=== PATIENT | male | born 1980 | race Caucasian/White ===

== ENCOUNTER 2019-07-13 01:43 | Day surgery (SDC) | payer BC, SELFPAY ==
[2019-07-08 14:01] VITALS: BMI 35.3
[2019-07-13 08:39] VITALS: BP 126/77; PULSE 87; RESP 18; TEMP 36.3; O2SAT 96
[2019-07-13] MEDS: LACTATED RINGERS 1,000 ML 150 ML IV CONT (08:53)
--- NOTE | 2019-07-13 09:00 | WPDANESEPPF ---
Anes - Initial Pre Proc Eval Procedure: Operation Date: 07/13/19 10:00 Proposed Procedures p Esophagogastroduodenoscopy - Davin Glasgow MD Date/Time: 07/13/19 09:00 Surgeon: Davin Glasgow MD Pre Op Diagnosis: reflux, dysphagia, epigastric pain Patient Data Age: 39 Gender: M Height: 5 ft 11 in Weight: 126 kg Last Vital Signs Temp 97.3 F L 07/13/19 08:39 Pulse 87 07/13/19 08:39 Resp 18 07/13/19 08:39 BP 126/77 07/13/19 08:39 Pulse Ox 96 07/13/19 08:39 Allergies Allergy/AdvReac Type Severity Reaction Status Date / Time No Known Allergies Allergy Unknown Verified 07/13/19 08:37 Home Medications Medication Instructions Recorded Confirmed Type esomeprazole magnesium 20 mg 20 mg PO DAILY 06/06/19 History capsule,delayed release Patient hx anesthesia problems: none Family hx anesthesia problems: none [facility] Past Medical History Medical History (Updated 07/13/19 @ 08:44 by Lalo Seals MD) GERD (gastroesophageal reflux disease) Family History Family History (Updated 01/19/14 @ 07:13 by DOCTOR UNKNOWN) Father Family history of malignant neoplasm of brain Social History Social History Smoking status: Never smoker Alcohol intake: current Anes - Eval Final PreProcedure Day of Procedure 07/13/19 09:00 Patient weight: obese Heart: regular rate and rhythm Lungs: clear to auscultation Airway: Mallampati scale class III Neurological: alert and oriented Last oral intake: >/= 8 hours ASA classification: II Emergent: no Anesthetic plan: proceed Anesthesia type and monitoring: general GIVS and standard monitoring Informed Consent: The patient's anesthetic plan and its attendant risks and benefits were discussed with the patient/family/POA. Questions were solicited and answers provided to the satisfaction of the patient/family/POA.
--- NOTE | 2019-07-13 09:08 | P.HP_ITS ---
History of Present Illness History of Present Illness Consent: Risks, benefits, and alternatives have been discussed and questions answered. Patient agrees to proceed with procedure. Chief complaint: reflux, dysphagia, epigastric pain Narrative: Jj Carias is a 39 year old male with chronic acid reflux. He has taken medication for years which relieves some of the symptoms. He has particularly prone to having problems with heartburn if he eats late in the day. He has not noticed dysphagia. He also has excessive burping a cannot relate it to anything in particular that he has eaten. He does avoid carbonation and drinking through straws. [facility] Past Medical History Medical History GERD (gastroesophageal reflux disease) Family History Family History (Updated 01/19/14 @ 07:13 by DOCTOR UNKNOWN) Father Family history of malignant neoplasm of brain Social History Social History Smoking status: Never smoker Alcohol intake: current Meds Home Medications and Allergies Home Medications Medication Instructions Recorded Confirmed Type esomeprazole magnesium 20 mg 20 mg PO DAILY 06/06/19 History capsule,delayed release Allergies Allergy/AdvReac Type Severity Reaction Status Date / Time No Known Allergies Allergy Unknown Verified 07/13/19 08:37 Vital Signs Vital Signs - 24 hr 07/13/19 08:39 Temperature 36.3 C L Pulse Rate 87 Respiratory Rate 18 Blood Pressure 126/77 Pulse Oximetry 96 Exam Const: General: alert Orientation/consciousness: patient oriented x3 Resp: Auscultation: clear to auscultation bilaterally Cardio: Rhythm: regular rhythm GI: GI Palp: Yes Soft to palpation and No Tenderness to palpation present (GI) Neuro: General: patient oriented x3 Assessment and Plan Assessment and plan (1) GERD (gastroesophageal reflux disease): Code(s): K21.9 - Gastro-esophageal reflux disease without esophagitis Status: Acute Assessment and Plan: EGD with possible biopsy or dilatation or cautery.
[2019-07-13 09:20] VITALS: BP 122/78; PULSE 83; RESP 13; O2SAT 94
[2019-07-13 09:30] VITALS: BP 114/71; PULSE 77; RESP 13; O2SAT 95
[2019-07-13 09:40] VITALS: BP 125/88; PULSE 73; RESP 19; O2SAT 97
== END 2019-07-13 09:56 | disposition home or self-care (01) ==
PROVIDERS: PCP Family Medicine; Visit Provider Internal Medicine Gastroenterology
PROC: 0DJ08ZZ Inspection of Upper Intestinal Tract, Via Natural or Artificial Opening Endoscopic (ICD-10-PCS; CPT 43235; principal; 2019-07-13 10:00)
DX: K21.0 Gastro-esophageal reflux disease with esophagitis (principal); K31.7 Polyp of stomach and duodenum; E66.9 Obesity, unspecified; Z68.38 Body mass index [BMI] 38.0-38.9, adult
CPT/HCPCS: 43239; 88305; J2704; J7120

== ENCOUNTER 2021-01-26 19:29 | Observation (INO) | payer BC, SELFPAY ==
[2021-01-26] VITALS (23 sets, daily range): BP systolic 85–143; BP diastolic 44–84; PULSE 76–112; RESP 14–34; TEMP 36.8; O2SAT 95–97
--- NOTE | ~2021-01-26 | XR_ITS ---
EXAMINATION: XR chest 1V portable DATE: 01/26/2021 20:51 INDICATION: Cough and shortness of breath. Generalized chest pain. COVID-19 positive. TECHNIQUE: A single frontal view of the chest was obtained. COMPARISON: Chest 2 views 07/08/2017, CT abdomen and pelvis 07/08/2017 FINDINGS: There is worsened elevation of right hemidiaphragm. There are airspace opacities in right m id and lower lung zones. No pleural effusion or pneumothorax. The heart size is normal. IMPRESSION: 1. Airspace opacities in right mid and lower lung zones with worsened elevation of right hemidiaphrag m, consistent with atelectasis versus pneumonia. Reviewed, dictated and finalized at location A. IMPRESSION: 1. Airspace opacities in right mid and lower lung zones with worsened elevation of right hemidiaphragm, consistent with atelectasis versus pneumonia.
--- NOTE | ~2021-01-26 | CT_ITS ---
EXAMINATION: CTA chest PE protocol DATE: 01/26/2021 21:16 INDICATION: Shortness of breath. COVID-19 pneumonia. TECHNIQUE: Computed tomography angiography (CTA) of the chest was performed with 100 mL Omnipaque-350 intravenous contrast timed to evaluate the pulmonary arteries. Coronal maximum intensity projection 3D-reconstructions were created by the technologist. Automated exposure control and iterative reconst ruction technique were employed. The dose-length product was 929.69 mGy-cm. COMPARISON: CT abdomen and pelvis 07/08/2017 FINDINGS: There are patchy airspace and groundglass opacities in all lobes. No pleural effusion. Ther e is chronic elevation of right hemidiaphragm. The heart size is normal. No pericardial effusion. The re is no pulmonary embolus. There is mild right hilar lymphadenopathy. There is a small sliding hiata l hernia. There is mild thoracic spondylosis. IMPRESSION: 1. No pulmonary embolus. 2. Diffuse lung disease, consistent with COVID-19 pneumonia. 3. Mild right hilar lymphadenopathy, likely reactive. 4. Small sliding hiatal hernia. Reviewed, dictated and finalized at location A.
--- NOTE | 2021-01-26 19:39 | ECG_ITS ---
Measurements Intervals [place] Rate: 108 P: -13 DE: 136 QRS: 57 QRSD: 104 T: -16 QT: 322 QTc: 433 Interpretive Statements SINUS TACHYCARDIA POSSIBLE LEFT ATRIAL ENLARGEMENT INCOMPLETE RIGHT BUNDLE BRANCH BLOCK CONSIDER INFERIOR INFARCT, AGE INDETERMINATE BORDERLINE T WAVE ABNORMALITY- ANTEROLATERAL LEADS ABNORMAL ECG Electronically Signed On 01-27-2021 7:01:12 CDT by Leighton Lambert D.O.
[2021-01-26 20:20] LABS: Basophils Percent Auto 0.2 % (0.2-1.2); Hematocrit 46.8 % (42.0-52.0); Hemoglobin 15.9 g/dL (14.0-18.0); Immature Granulocyte Absolute 0.04 K/mm3 (0.00-0.031); Immature Granulocyte Percent A 0.5 % (0-0.5); Lymphocytes Absolute Auto 1.58 K/mm3 (0.9-3.2); Lymphocytes Percent Auto 18.8 % (18.3-44.2); Mean Corpuscular Hemoglobin 28.8 pg (26-34); Mean Corpuscular Volume 84.8 fl (80-100); Mean Platelet Volume 9.6 fl (7.4-10.4); Monocytes Absolute Auto 0.7 K/mm3 (0.1-0.6); Monocytes Percent Auto 8.4 % (2.6-8.5); Neutrophils Absolute Auto 6.1 K/mm3 (1.3-6.7); Neutrophils Percent Auto 72.1 % (45.5-73.1); Platelet Count Result 279 k/mm3 (150-375); Red Blood Count 5.52 M/mm3 (4.6-6.20); Red Cell Distribution Width 13.2 % (11.5-14.5); White Blood Count 8.4 K/mm3 (4.5-10.0)
[2021-01-26 20:30] LABS: Anion Gap 8 mmol/L (8-16); Blood Urea Nitrogen 14 mg/dL (9-20); Calcium 8.8 mg/dL (8.4-10.2); Carbon Dioxide 26 mmol/L (22-30); Chloride 100 mmol/L (98-107); Estimated Glomerular Filt Rate > 60; Glucose 111 mg/dL (65-110); Potassium 3.4 mmol/L (3.4-5.0); Sodium 134 mmol/L (137-145)
--- NOTE | 2021-01-26 20:31 | ED.SOB ---
HPI - SOB/Dyspnea General Chief Complaint: Shortness of Breath/Dyspnea Stated Complaint: covid positive, sob Time Seen by Provider: 01/26/21 19:56 Source: RN notes reviewed History of Present Illness HPI Narrative: Patient presents emergency department from home for COVID-19. Patient states he tested positive for COVID-19 approximately 3 days ago symptoms starting 5 days prior to that he states that today he was having some midsternal chest pain worse with coughing or deep inspiration as well as shortness of breath he also noted episodes of near syncope with trying to use the restroom he states he has been running low-grade fevers last took ibuprofen at 6 PM he notes nausea but denies any vomiting denies any abdominal pain patient states he did not receive the Covid vaccination Related Data Home Medications Medication Instructions Recorded Confirmed esomeprazole magnesium 20 mg 20 mg PO DAILY 06/06/19 capsule,delayed release Allergies Allergy/AdvReac Type Severity Reaction Status Date / Time No Known Allergies Allergy Unknown Verified 07/13/19 08:37 Review of Systems Review of Systems: Gen.: Reports fever Eyes: Denies eye pain or visual change ENT: Denies congestion Respiratory: See HPI CV: Reports chest pain GI: Denies abdominal pain emesis or diarrhea. Reports nausea Musculoskeletal: Denies back pain or muscle pain Neuro: Denies numbness, tingling, weakness or focal weakness Skin: Denies rash Except as documented, all other systems reviewed and negative [facility] Past Medical History Medical History (Updated 01/26/21 @ 23:10 by Ray Corneoj DO) GERD (gastroesophageal reflux disease) Family History Family History (Updated 01/19/14 @ 07:13 by DOCTOR UNKNOWN) Father Family history of malignant neoplasm of brain Social History Social History Smoking status: Never smoker Alcohol intake: current Exam Narrative: APPEARANCE: No acute distress, nontoxic, resting in bed EYES: EOMI HEENT: Normocephalic, atraumatic, OMM RESPIRATORY: No respiratory distress Clear to auscultation bilaterally with no rhonchi wheezing or rales. CARDIOVASCULAR: Regular rate and rhythm without murmurs rubs or gallops. ABDOMINAL: Soft, nontender, nondistended, no rebound or guarding MUSCULOSKELETAl: Moves all extremities. No clubbing, cyanosis or edema. NEURO: Awake and alert. Following commands, speech normal, no focal deficits SKIN:: Warm, dry. No rashes lesions or abrasions PSYCHIATRIC: Normal affect/mood, Course Course Emergency Course: Patient given 2 L of fluid in the ED repeat orthostatics still showed mild orthostasis patient unstable on his feet will admit at this time Discussed with Dr. Huynh presentation work-up agrees with admission at this time Discussed with patient and family results of workup and diagnosis. Discussed need for admission. Patient and family understand and agree to current treatment plan Vital Signs Vital signs: Vital Signs Temperature 98.2 F 01/26/21 19:40 Pulse Rate 108 H 01/26/21 19:40 Respiratory Rate 18 01/26/21 19:40 Blood Pressure 143/83 H 01/26/21 19:40 Pulse Oximetry 97 01/26/21 19:40 Temperature 98.2 F 01/26/21 19:40 Pulse Rate 102 H 01/26/21 22:31 Respiratory Rate 23 H 01/26/21 22:31 Blood Pressure 102/60 01/26/21 22:30 Pulse Oximetry 95 01/26/21 21:17 MDM - SOB/Dyspnea Lab Data Result diagrams: 01/26/21 19:53 01/26/21 19:53 Labs: Lab Results 01/26/21 01/26/21 01/26/21 Range/Units 19:53 19:53 19:53 WBC 8.4 (4.5-10.0) K/mm3 RBC 5.52 (4.6-6.20) M/mm3 Hgb 15.9 (14.0-18.0) g/dL Hct 46.8 (42.0-52.0) % MCV 84.8 (80-100) fl MCH 28.8 (26-34) pg MCHC 34.0 (32-36) g/dl RDW 13.2 (11.5-14.5) % Plt Count 279 (150-375) k/mm3 MPV 9.6 (7.4-10.4) fl Immature Gran % (Auto) 0.5 (0-0.5) % Neut % (Auto)
[2021-01-26 20:41] LABS: Alanine Aminotransferase 53 U/L (4-50); Albumin Level 4.4 g/dL (3.5-5.1); Alkaline Phosphatase 93 U/L (38-126); Aspartate Amino Transferase 53 U/L (17-59); Bilirubin,Total 0.6 mg/dL (0.2-1.3); CRP 1.8 mg/dL (<1.0); Lactate Dehydrogenase 529 U/L (313-618)
[2021-01-26 21:08] LABS: Troponin I < 0.012 ng/mL (0.000-0.034)
[2021-01-26] MEDS: SODIUM CHLORIDE 0.9% IV 1,000 ML 999 ML IV CONT ×2 (21:13→21:14)
[2021-01-26] MEDS: FAMOTIDINE 20 MG/2 ML VIAL IV PUSH (21:13)
[2021-01-26] MEDS: ONDANSETRON INJ 4 MG/2 ML VIAL IV PUSH (21:13)
[2021-01-26] MEDS: ALBUTEROL SULFATE (*SP) AEROSOL 1 PUFF 2 PUFF INHALATION (21:25)
--- NOTE | 2021-01-26 23:00 | PM.IMHP ---
H&P: HPI History of Present Illness Date/Time: 01/26/21 23:00 Chief Complaint: Weakness and shortness of breath Narrative: This is a 40-year-old male with GERD who presented to the emergency department earlier today via private vehicle from home with complaints of weakness and shortness of breath. He tested positive for COVID-19 3 days ago on but he has had symptoms since last weekend to include body aches, generalized malaise, cough, mild hyposmia and dysgeusia, nausea, and subjective fever. His appetite has been extremely poor and he has not had much to even eat or drink for the last several days. More recently he has been lightheaded and dizzy with position changes with several near syncopal episode when getting up to use the restroom. Indeed he was found to be orthostatic in the emergency department (105/84 --> 85/44) and despite receiving 2 L of normal saline he continues to be orthostatic and he is being admitted in the setting. Chest CTA showed no evidence of pulmonary embolism but did demonstrate diffuse lung disease consistent with COVID-19. Patient reports that his fianc?e and their children are also positive for COVID-19. He is unvaccinated. Review of Systems Review of Systems: 12 systems were reviewed with pertinent positives and negatives as per HPI. He has had subjective fever and frequent sweats. Mild headache. Diffuse body aches. No significant sinus congestion, rhinorrhea, otalgia, or odynophagia. Reports chest congestion with cough productive of clear sputum. He has not had exertional chest pain or pleuritic pain. No orthopnea or PND. He has felt a bit winded with activity. No vomiting or diarrhea. Reports decrease in urine output with dark urine. Except as documented, all other systems were reviewed and are negative. [facility] Past Medical History Medical History (Updated 01/26/21 @ 23:24 by Christina Galeano PA-C) Gastroesophageal reflux disease Kidney stone Surgical History Surgical History (Updated 01/26/21 @ 23:21 by Christina Galeano PA-C) History of cystoscopy Family History Family History Father Family history of malignant neoplasm of brain Social History Social History (Updated 01/26/21 @ 23:22 by Christina Galeano PA-C) Social History: The patient lives with his elodia and their children in [place]. Non-smoker. Consumes alcohol socially and in moderation. No illicit substance use. Surrogate decision-maker: Patricia Carias, mother. CODE STATUS: Full code. Meds Home Medications and Allergies Home Medications Medication Instructions Recorded Confirmed Type esomeprazole magnesium 20 mg 20 mg PO DAILY 06/06/19 History capsule,delayed release albuterol sulfate 90 mcg/actuation 2 puff INHALATION Q4H PRN #8.5 g 11/20/20 Rx aerosol inhaler benzonatate 100 mg capsule 100 mg PO TID PRN #30 cap 11/20/20 Rx Allergies Allergy/AdvReac Type Severity Reaction Status Date / Time No Known Allergies Allergy Unknown Verified 07/13/19 08:37 Vital Signs Vital Signs - 24 hr 01/26/21 19:40 01/26/21 20:30 01/26/21 20:33 Temperature 98.2 F Pulse Rate 108 H 88 93 Respiratory Rate 18 34 H 25 H Blood Pressure 143/83 H 107/69 Pulse Oximetry 97 01/26/21 20:38 01/26/21 20:41 01/26/21 20:42 Temperature Pulse Rate 80 81 Respiratory Rate 18 Blood Pressure 85/44 L 85/44 L Pulse Oximetry 01/26/21 20:45 01/26/21 20:46 01/26/21 21:00 Temperature Pulse Rate 76 81 82 Respiratory Rate 19 20 28 H Blood Pressure 92/73 L Pulse Oximetry 01/26/21 21:01 01/26/21 21:17 01/26/21 21:23 Temperature Pulse Rate 82 100 88 Respiratory Rate 28 H 19 25 H Blood Pressure 97/69 L 104/58 L Pulse Oximetry 95 01/26/21 21:26 01/26/21 21:30 01/26/21 21:45 Temperature Pulse Rate 88 92 89 Respiratory Rate 14 24 H 22 H Blood Pressure Pulse Oximetry 01/26/21 22:00
--- NOTE | 2021-01-26 23:30 | PC.NURSE ---
Assumed care of pt at this time, report taken from Curly VOGEL. Pt alert and upright on stretcher, denies any complaints at this time. Pt updated on POC.
[2021-01-27] VITALS (10 sets, daily range): BP systolic 106–144; BP diastolic 54–70; PULSE 76–109; RESP 17–20; TEMP 36.2–38.4; O2SAT 93–98; BMI 37.5
--- NOTE | 2021-01-27 00:46 | PC.NURSE ---
This patient, Jj Carias, was admitted to [address] [place] [address] Room 300-01. Patient/family oriented to hospital policies and general routines including ID bracelet, bed and alarms, visiting hours, pain management, procedures, bathroom and other care routines, personal items, smoking policy, room service/diet, and visiting hours. Information on how to activate the Rapid Response Team has been discussed. Patient/Family are encouraged to report perceived risks to care and to ask questions if they do not understand what they are told or what they should do.
[2021-01-27] MEDS: SODIUM CHLORIDE 0.9% IV 1,000 ML 100 ML IV CONT (00:58)
[2021-01-27 01:09] LABS: Troponin I < 0.012 ng/mL (0.000-0.034)
[2021-01-27 02:55] LABS: Basophils Percent Auto 0.3 % (0.2-1.2); Hematocrit 39.8 % (42.0-52.0); Hemoglobin 13.2 g/dL (14.0-18.0); Immature Granulocyte Absolute 0.03 K/mm3 (0.00-0.031); Immature Granulocyte Percent A 0.4 % (0-0.5); Lymphocytes Absolute Auto 1.05 K/mm3 (0.9-3.2); Lymphocytes Percent Auto 14.9 % (18.3-44.2); Mean Corpuscular HGB Conc 33.2 g/dl (32-36); Mean Corpuscular Hemoglobin 28.8 pg (26-34); Mean Corpuscular Volume 86.7 fl (80-100); Mean Platelet Volume 9.6 fl (7.4-10.4); Monocytes Absolute Auto 0.4 K/mm3 (0.1-0.6); Neutrophils Absolute Auto 5.5 K/mm3 (1.3-6.7); Neutrophils Percent Auto 78.4 % (45.5-73.1); Platelet Count Result 225 k/mm3 (150-375); Red Blood Count 4.59 M/mm3 (4.6-6.20); Red Cell Distribution Width 13.5 % (11.5-14.5); White Blood Count 7.1 K/mm3 (4.5-10.0)
[2021-01-27 03:25] LABS: Troponin I < 0.012 ng/mL (0.000-0.034)
[2021-01-27 03:31] LABS: Alanine Aminotransferase 42 U/L (4-50); Albumin Level 3.5 g/dL (3.5-5.1); Alkaline Phosphatase 65 U/L (38-126); Anion Gap 6 mmol/L (8-16); Aspartate Amino Transferase 38 U/L (17-59); Bilirubin,Total 0.4 mg/dL (0.2-1.3); Blood Urea Nitrogen 13 mg/dL (9-20); CRP 1.9 mg/dL (<1.0); Calcium 7.7 mg/dL (8.4-10.2); Carbon Dioxide 25 mmol/L (22-30); Chloride 104 mmol/L (98-107); Estimated CRCL calculation 145 ml/min; Estimated Glomerular Filt Rate > 60; Glucose 151 mg/dL (65-110); Lactate Dehydrogenase 452 U/L (313-618); Magnesium 1.9 mg/dL (1.6-2.3); Potassium 3.3 mmol/L (3.4-5.0); Sodium 135 mmol/L (137-145)
[2021-01-27 04:25] LABS: Thyroid Stimulating Hormone Reflex 0.733 uIU/mL (0.465-4.68)
[2021-01-27] MEDS: ONDANSETRON INJ 4 MG/2 ML VIAL IV PUSH (07:03)
[2021-01-27] MEDS: ALBUTEROL SULFATE (*SP) AEROSOL 1 PUFF 2 PUFF INHALATION (08:05)
[2021-01-27] MEDS: ENOXAPARIN 40 MG/0.4 ML SYRINGE SUB-Q (08:05)
[2021-01-27] MEDS: FAMOTIDINE 20 MG TABLET PO (09:33)
[2021-01-27] MEDS: POTASSIUM CHLORIDE 20 MEQ TABLET PO (09:33)
[2021-01-27] MEDS: BENZONATATE 100 MG CAPSULE PO (09:33)
--- NOTE | 2021-01-27 09:42 | PM.IMPN ---
Progress Note: A&P Assessment and Plan (1) Pneumonia due to COVID-19 virus: Code(s): U07.1 - COVID-19; J12.82 - Pneumonia due to coronavirus disease 2019 Status: Acute Assessment and Plan: Positive COVID test on 01/24/2021. Patient is not hypoxic and has minimally elevated inflammatory markers. At this time he does not meet criteria for treatment aside from supportive care. Albuterol MDI available as needed. Low-grade fever 99.9? which will be managed with Tylenol. (2) Orthostatic hypotension: Code(s): I95.1 - Orthostatic hypotension Status: Acute Assessment and Plan: He received 2 L of normal saline in the emergency department and gentle hydration overnight. He appears euvolemic on exam, though he is still symptomatic. At this time will stop fluids to avoid over-hydration given COVID-19 pneumonia. Add Ervin hose. Continue to monitor orthostatics. Fall precautions. Volume status will be closely monitored and fluids will be resumed if patient not tolerating p.o. intake. (3) Dehydration: Code(s): E86.0 - Dehydration Status: Acute Assessment and Plan: Plan is as detailed above. Oral hydration encouraged. (4) Gastroesophageal reflux disease: Code(s): K21.9 - Gastro-esophageal reflux disease without esophagitis Status: Acute Assessment and Plan: Home esomeprazole is non formulary, will switch to pantoprazole during admission. Tums p.r.n. (5) Hypokalemia: Code(s): E87.6 - Hypokalemia Status: Acute Assessment and Plan: Potassium 3.3 this morning. This is likely due to poor p.o. intake. Oral potassium has been supplemented and will repeat BMP tomorrow. Subjective Date/time seen: 01/27/21 09:42 Interval history: Date of service: 01/27/2021 Jj Carias is a 40-year-old male with a history of GERD who is seen in follow-up for COVID-19 pneumonia and associated dehydration. He is feeling pretty poorly today. He states he feels very short of breath and endorses conversational dyspnea as well as JULES. He endorses nonproductive cough. He felt feverish this morning. Still with poor sense of taste and smell. He continues to feel faint. It this morning he sat up on the side of the bed to use the urinal and felt that he was going to pass out. At the time of my evaluation, he is lying down in bed and reports he is worried to get up because he feels as though he will pass out. He endorses chest tightness that improved after receiving albuterol. Denies wheezing. No palpitations. Denies abdominal pain. He does have a headache and backache today. Review of Systems Review of Systems: All systems reviewed & are unremarkable except as noted in HPI and below Exam Narrative: Mr. Carias is a well-nourished, well-appearing 40-year-old male who is lying supine in bed. He appears comfortable and is in NARD. Neuro: awake, alert and oriented x4, speech clear, no focal neuro deficits noted HEENMT: normocephalic, atraumatic, EOMI, sclerae anicteric Neck: supple, no lymphadenopathy Respiratory: clear to auscultation bilaterally, nonlabored breathing Cardio: regular rate, regular rhythm with S1-S2 Abdomen: nondistended, normoactive bowel sounds, soft, nontender to palpation Extremities: no edema, erythema, or tenderness to palpation, DP pulses 2+ bilaterally Skin: no rashes or lesions, warm and dry Psych: appropriate mood and affect, judgment and insight intact Objective Data Vital Signs Vital Signs: Vital Signs - 24 hr 01/26/21 19:40 01/26/21 20:30 01/26/21 20:33 Temperature 98.2 F Pulse Rate 108 H 88 93 Respiratory Rate 18 34 H 25 H Blood Pressure 143/83 H 107/69 Pulse Oximetry 97 01/26/21 20:38 01/26/21 20:41 01/26/21 20:42 Temperature Pulse Rate 80 81 Respiratory Rate 18 Blood Pressure 85/44 L 85/44 L Pulse Oximetry 01/26/21 20:45 01/26/21 20:46 01/26/21 21:00 Temperature Pu
[2021-01-27] MEDS: ACETAMINOPHEN 325 MG TABLET 650 MG PO ×2 (12:49→18:05)
[2021-01-27] MEDS: PANTOPRAZOLE 40 MG TABLET PO (12:49)
[2021-01-27] MEDS: guaiFENesin 12 HR 600 MG TABCR PO (20:20)
[2021-01-28] VITALS (9 sets, daily range): BP systolic 116–143; BP diastolic 65–72; PULSE 78–101; RESP 16–18; TEMP 36.6–37.8; O2SAT 91–95
[2021-01-28 07:26] LABS: Hematocrit 40.5 % (42.0-52.0); Hemoglobin 13.4 g/dL (14.0-18.0)
[2021-01-28] MEDS: ENOXAPARIN 40 MG/0.4 ML SYRINGE SUB-Q (07:59)
[2021-01-28] MEDS: PANTOPRAZOLE 40 MG TABLET PO (07:59)
[2021-01-28] MEDS: guaiFENesin 12 HR 600 MG TABCR PO (07:59)
[2021-01-28 08:06] LABS: Anion Gap 7 mmol/L (8-16); Blood Urea Nitrogen 7 mg/dL (9-20); Calcium 8.2 mg/dL (8.4-10.2); Carbon Dioxide 26 mmol/L (22-30); Chloride 101 mmol/L (98-107); Estimated CRCL calculation 145 ml/min; Estimated Glomerular Filt Rate > 60; Glucose 95 mg/dL (65-110); Potassium 3.6 mmol/L (3.4-5.0); Sodium 134 mmol/L (137-145)
[2021-01-28] MEDS: ACETAMINOPHEN 325 MG TABLET 650 MG PO (12:28)
--- NOTE | 2021-01-28 13:37 | PM.DS ---
DS: Admitting Diagnosis Admitting Diagnosis COVID-19 DS: Discharge Diagnosis Discharge Diagnosis (1) Pneumonia due to COVID-19 virus: Code(s): U07.1 - COVID-19; J12.82 - Pneumonia due to coronavirus disease 2019 Status: Acute Assessment and Plan: Positive COVID test on 01/24/2021. He never became hypoxic and did not require supplemental O2. Able to ambulate around his room without desaturation Inflammatory markers were minimally elevated Given lack of oxygen requirements, he did not meet criteria for treatment including dexamethasone or remdesivir Supportive care provided including bronchodilators, expectorants, antipyretics, and incentive spirometry Patient is not vaccinated. Informed him that he is eligible for vaccine 90 days following acute illness. Follow-up with PCP. (2) Orthostatic hypotension: Code(s): I95.1 - Orthostatic hypotension Status: Acute Assessment and Plan: He was noted to have a 23 point drop in systolic BP and 40 point drop in diastolic BP on initial orthostatic assessment. He received 2 L of normal saline in the emergency department and gentle hydration overnight. On my initial examination, the patient was euvolemic. IV fluids discontinued as he was tolerating p.o. intake. Subsequent orthostatic vital signs were negative and the patient's symptoms resolved with rehydration. Continue to encourage oral p.o. intake. Fall precautions discussed. (3) Low grade fever: Code(s): R50.9 - Fever, unspecified Status: Acute Assessment and Plan: He had low-grade fever with T-max 101.2?. Fever secondary to COVID-19. No signs or symptoms to suggest secondary bacterial infection or additional source of infection. Fever improved with Tylenol. Continue to monitor temperature at home and continue with Tylenol as needed for low-grade fevers. Discussed with him worrisome signs or symptoms for which to return if fever persists or does not improve with Tylenol. He felt comfortable to manage low-grade fevers at home. (4) Dehydration: Code(s): E86.0 - Dehydration Status: Acute Assessment and Plan: Likely due to poor p.o. intake and insensible losses from fever. Rehydrated as above and he appeared euvolemic on my exams. Oral hydration encouraged. (5) Gastroesophageal reflux disease: Code(s): K21.9 - Gastro-esophageal reflux disease without esophagitis Status: Acute Assessment and Plan: Continue home esomeprazole (6) Hypokalemia: Code(s): E87.6 - Hypokalemia Status: Acute Assessment and Plan: Potassium was slightly decreased at 3.3 and was supplemented. Potassium 3.6 at time of discharge. DS: Summary Hospital Course Hospital Course: Date of admission: 01/26/2021 Date of discharge: 01/28/2021 Jj Carias is a 40-year-old male with a history of GERD who presented to the emergency department on 01/26/2021 after testing positive for COVID 3 days prior with complaints of near syncope and low-grade fever. On presentation to the emergency department, he was afebrile, mildly tachycardic with additional vital signs stable, CBC and BMP unremarkable, CXR showed airspace opacities in the mid right and lower lung zones and CTA showed diffuse lung disease consistent with COVID 19 pneumonia and negative for pulmonary embolism. He was admitted to the hospitalist service for further evaluation and management. Please see above for further details. Supportive care was provided and he was no longer orthostatic. His symptoms improved significantly. Given lack of need for supplemental oxygen and symptomatic improvement, he was determined to no longer require inpatient care and was felt to be stable for discharge. He felt comfortable with plans for return home. We talked about the necessary isolation precautions. I educated him on additional measures to help slow the spread of COVID-19. He was educat
== END 2021-01-28 15:00 | disposition home or self-care (01) ==
LOC: ANHED 20:01 → ANH3MEDSUR 23:10
PROVIDERS: Physician Assistant; Admitting Provider Internal Medicine; Emergency Provider Emergency Medicine; PCP Family Medicine; Visit Provider Family Medicine
DX: U07.1 COVID-19 (principal); J12.82 Pneumonia due to coronavirus disease 2019; I95.1 Orthostatic hypotension; E87.6 Hypokalemia; E86.0 Dehydration; R06.02 Shortness of breath; K21.9 Gastro-esophageal reflux disease without esophagitis
CPT/HCPCS: 36415; 71045; 71275; 80048; 80053; 80076; 82728; 83615; 83735; 84443; 84484; 85014; 85018; 85025; 85380; 86140; 93005; 94640; 96361; 96372; 96374; 96375; 96376; 99285; A9270; G0378; J0131; J1650; J2405; J7030; Q9967